=== PATIENT | female | born 1940 | race Caucasian/White ===

== ENCOUNTER 2017-04-10 16:26 | Emergency (ER) | payer MEDICARE, BC ==
[2017-04-10 16:44] VITALS: BP 145/69
--- NOTE | 2017-04-10 16:58 | EDM.PDOC ---
ED HPI GENERAL MEDICAL PROBLEM - General Chief Complaint: Lower Extremity Injury/Pain Stated Complaint: RT FOOT AND ANKLE INJURY Time Seen by Provider: 04/10/17 16:56 Source of Information: Reports: Patient History Limitations: Reports: No Limitations - History of Present Illness INITIAL COMMENTS - FREE TEXT/NARRATIVE: 76-year-old female presents to the ED for evaluation of right ankle and lateral foot pain. She states she was simply stepping out of her vehicle when she inverted her right ankle and foot on late night April 07. Over the next 2 days she's been elevating it and icing it but it's becoming more painful. She has heel walking. His primarily over the lateral aspect of the foot. She localizes pain to the fifth metatarsal head. The ankle itself is also markedly swollen and ecchymotic dorsally and laterally. Onset: Sudden Onset Date: 04/07/17 Onset Time: 19:00 Duration: Day(s):, Getting Worse Location: Reports: Lower Extremity, Right (Right ankle and dorsolateral foot) Quality: Reports: Ache, Throbbing Severity: Moderate Improves with: Reports: Rest Worsens with: Reports: Movement (And weightbearing) Context: Reports: Trauma (Inversion injury to the ankle stepping out of her vehicle) Associated Symptoms: Reports: No Other Symptoms Treatments DIAMOND CLEAVER: Reports: Cold Therapy, NSAIDS, Other (see below) Other Treatments DIAMOND CLEAVER: elevating foot right foot Pain Score (Numeric/FACES): 7 - Related Data Allergies Allergy/AdvReac Type Severity Reaction Status Date / Time codeine Allergy Severe Vomiting Verified 04/10/17 16:44 Home Meds: Home Meds Metoprolol Tartrate 50 mg PO DAILY 04/22/14 [History] Past Medical History HEENT History: Reports: Impaired Vision Cardiovascular History: Reports: Hypertension Musculoskeletal History: Reports: Osteoporosis Endocrine/Metabolic History: Reports: Osteopenia, Osteoporosis Social & Family History - Family History Family Medical History: Noncontributory - Tobacco Use Smoking Status *Q: Never Smoker - Caffeine Use Caffeine Use: Reports: Coffee - Alcohol Use Days Per Week of Alcohol Use: 4 Number of Drinks Per Day: 1 Total Drinks Per Week: 4 - Recreational Drug Use Recreational Drug Use: No - Living Situation & Occupation Living situation: Reports: Occupation: Employed Review of Systems - Review of Systems Review Of Systems: See Below Constitutional: Reports: No Symptoms Eyes: Reports: Other Ears: Reports: No Symptoms Nose: Reports: No Symptoms Mouth/Throat: Reports: No Symptoms Respiratory: Reports: No Symptoms Cardiovascular: Reports: No Symptoms GI/Abdominal: Reports: No Symptoms Genitourinary: Reports: No Symptoms Musculoskeletal: Reports: No Symptoms Skin: Reports: No Symptoms Neurological: Reports: No Symptoms Psychiatric: Reports: No Symptoms ED EXAM, GENERAL - Physical Exam Exam: See Below Exam Limited By: No Limitations General Appearance: Alert, WD/WN, No Apparent Distress Peripheral Pulses: 2+: Posterior Tibial (L), Posterior Tibial (R), Dorsalis Pedis (L), Dorsalis Pedis (R) Extremities: Other (Examination was for the most part limited to her right lower extremity. She has no knee pain or true knee effusion. There is no pain on palpation of the proximal fibula. There is no true pain on palpation of the medial and lateral malleolus. Ankle ligaments themselves appear to be intact and nontender. There is no instability of the ankle ligaments. Point of maximal tenderness is over the fifth metatarsal head and lateral dorsal foot. It is markedly ecchymotic in this area as well. It is moderately swollen.) Neurological: Alert, Oriented, CN II-XII Intact, Normal Cognition, Normal Gait Psychiatric: Normal Affect, Normal Mood Skin Exam: Warm, Dry, Intact EKG INTERPRETATION EKG Date: 04/10/17 Time: 17:30 Rhythm: NSR Rate (Beats/Min): 77 [place]: Normal P-Wave: Present QRS: Normal ST-T: Normal QT: Prolonged (Mildly prolonged) Course - Vital Signs Last Recorded V/S: Last Vital Signs Temp 36.1 C 04/10/17 16:41 Pulse 65 04/10/17 16:41 Resp 18 04/10/17 16:41 BP 145/69 H 04/10/17 16:41 Pulse Ox 98 04/10/17 16:41 - Orders/Labs/Meds Orders: Active Orders 24 hr Category Date Time Status Ankle Min 3V Rt [CR] Stat Exams 04/10/17 16:56 Taken Foot Comp Min 3V Rt [CR] Stat Exams 04/10/17 16:57 Taken - Radiology Interpretation Free Text/Narrative:: [id number] female attends the ED with an inversion injury to her right lateral foot that occurred 3 nights ago while she was stepping out of her vehicle. Pain is actually worsening and concern arose as it is becoming more ecchymotic and swollen over the last 2 days. She's had it up and has been icing it. She is heel walking. She did not fall so well she fell backwards into the car not onto the ground. Examination reveals no ligamentous injury to the true ankle although it is very swollen and ecchymotic on the dorsal anterior ankle and lateral foot. There is obtained of both the ankle and the foot do not reveal any obvious fractures. Of note the bones are very osteoporotic making it difficult to rule out a hairline fracture in the fifth metatarsal head particularly. Patient has been using Juan A wrap at home and will continue to do so. She will elevate and apply heat at this time. Continue NSAIDs as needed. Follow-up x-ray could be repeated in 14 days time if she is still having significant pain in this area although treatment would likely be unchanged. Departure - Departure Time of Disposition: 17:45 Disposition: Home, Self-Care 01 Condition: Fair Clinical Impression: Inversion sprain of right ankle Qualifiers: Encounter type: initial encounter Qualified Code(s): S93.401A - Sprain of unspecified ligament of right ankle, initial encounter Contusion of right foot, initial encounter Qualifiers: Encounter type: initial encounter Qualified Code(s): S90.31XA - Contusion of right foot, initial encounter - Discharge Information Instructions: Foot Contusion, [id number] Referrals: Zora Chandler CONTROL TOWER OPERATOR [Primary Care Provider] - Forms: ED Department Discharge Additional Instructions: Evaluation in the emergency department today in regards to inversion injury to the right ankle at occurred late night April 07. Persistent swelling and pain particularly lateral foot since time of injury. Marked bruising of the anterior lateral foot and ankle appreciated. The ankle ligaments themselves are intact however pain localized more to the head of the fifth metatarsal bone lateral right foot. X-rays of the ankle do not reveal any bony fractures. X- rays of the right foot also do not reveal any obvious fractures. Of note the bones are very osteoporotic or thin and a hairline crack can easily be missed. Treatment is the same with babying the area as much as possible until it heals but it may be very sore over the right lateral foot for the next 6 weeks. Motrin or Aleve for pain relief as needed. - My Orders Last 24 Hours: My Active Orders 04/10/17 16:56 Ankle Min 3V Rt [CR] Stat 04/10/17 16:57 Foot Comp Min 3V Rt [CR] Stat - Assessment/Plan Last 24 Hours: My Active Orders 04/10/17 16:56 Ankle Min 3V Rt [CR] Stat 04/10/17 16:57 Foot Comp Min 3V Rt [CR] Stat
--- NOTE | 2017-04-11 08:14 | CR ---
Right ankle: Four views of the right ankle were obtained. Comparison: No previous right ankle exam. Ankle mortise is symmetric. Bony structures are osteopenic. No fracture, dislocation or other bony abnormality is seen. Small soft tissue calcification is seen off the medial ankle which is incidental. Impression: 1. Osteopenia. Nothing acute is appreciated on right ankle study. Diagnostic code #2
--- NOTE | 2017-04-11 08:14 | CR ---
Right foot: Four views of the right foot were obtained. Comparison: No previous right foot exam. Mild bunion deformity is noted. Bony structures are osteopenic. No calcaneal spurs are seen. Mild soft tissue swelling appears to be present. Slight degenerative change is noted within the DIP joint and PIP joints of the toes. No acute fracture or dislocation is seen. Impression: 1. Incidental findings. Nothing acute is appreciated on right foot study. Diagnostic code #2
== END 2017-04-10 17:55 | disposition home or self-care (01) ==
LOC: JD.ED 16:26
DX: S93.401A Sprain of unspecified ligament of right ankle, initial encounter (principal); S90.31XA Contusion of right foot, initial encounter; I10 Essential (primary) hypertension; Z88.5 Allergy status to narcotic agent; Z79.899 Other long term (current) drug therapy; X50.9XXA Other and unspecified overexertion or strenuous movements or postures, initial encounter
CPT/HCPCS: 73610-26-RT; 73610-RT; 73630-26-RT; 73630-RT; 99282; 99283

== ENCOUNTER 2017-08-26 21:21 | Emergency (ER) | payer MEDICARE, BC ==
[2017-08-26 21:32] VITALS: BP 147/66
[2017-08-26] MEDS ORDERED: HYDROmorphone 1 MG/ML Syringe IVPUSH ONE ×2 (21:41→22:39)
[2017-08-26] MEDS ORDERED: Ketorolac 30 MG/ML SDV IVPUSH ONE (21:41)
--- NOTE | 2017-08-26 21:55 | EDM.PDOC ---
ED HPI GENERAL MEDICAL PROBLEM - General Chief Complaint: Chest Pain Stated Complaint: chest pain Time Seen by Provider: 08/26/17 21:28 Source of Information: Reports: Patient History Limitations: Reports: No Limitations - History of Present Illness INITIAL COMMENTS - FREE TEXT/NARRATIVE: This is a 77-year-old female. About one week ago she awoke about 4 in the morning with severe pain in her left upper back and down her left arm. She thought she might be having some cardiac problems or musculoskeletal problems and this is been waxing and waning. She went to see a chiropractor but that didn 't seem to help. She does notice that if she takes her left arm and put it up over her head and relaxes it and rest it on her head it makes the pain eased up considerably. The pain apparently got worse today so she comes to the ER for evaluation. She's had no shortness of breath no nausea vomiting no diaphoresis. She has no history of neck problems or upper back problems. She is sitting fairly comfortably in the bed in no acute distress at this time when I go to interview her. She says the pain is rather intense and sometimes it's very sharp and it seems to cause tingling in her left thumb and index finger. She denies any recent illnesses no colds no coughs, no nausea or vomiting. Treatments CASINO CASHIER MANAGER: Reports: Other (see below) Other Treatments CASINO CASHIER MANAGER: none Chest Pain Score (Numeric/FACES): 10 - Related Data Allergies Allergy/AdvReac Type Severity Reaction Status Date / Time codeine Allergy Severe Vomiting Verified 04/10/17 16:44 Home Meds: Home Meds Metoprolol Tartrate 50 mg PO DAILY 04/22/14 [History] Aspirin [Halfprin] 81 mg PO DAILY 08/26/17 [History] Ondansetron [Zofran] 4 mg PO Q6H PRN #15 tab 08/26/17 [Rx] traMADol [Ultram] 50 mg PO Q6H PRN #15 tablet 08/26/17 [Rx] Past Medical History HEENT History: Reports: Impaired Vision Cardiovascular History: Reports: Hypertension Musculoskeletal History: Reports: Osteoporosis Endocrine/Metabolic History: Reports: Osteopenia, Osteoporosis Social & Family History - Family History Family Medical History: Noncontributory - Tobacco Use Smoking Status *Q: Never Smoker - Caffeine Use Caffeine Use: Reports: Coffee - Alcohol Use Days Per Week of Alcohol Use: 4 Number of Drinks Per Day: 1 Total Drinks Per Week: 4 - Recreational Drug Use Recreational Drug Use: No - Living Situation & Occupation Living situation: Reports: Occupation: Employed ED ROS GENERAL - Review of Systems Review Of Systems: See Below Constitutional: Denies: Fever, Chills HEENT: Reports: No Symptoms Respiratory: Denies: Shortness of Breath, Cough Cardiovascular: Denies: Chest Pain Endocrine: Reports: No Symptoms GI/Abdominal: Denies: Abdominal Pain, Nausea, Vomiting : Reports: No Symptoms Musculoskeletal: Reports: Arm Pain, Back Pain Skin: Reports: No Symptoms Neurological: Reports: Tingling Psychiatric: Reports: No Symptoms Hematologic/Lymphatic: Reports: No Symptoms ED EXAM, GENERAL - Physical Exam Exam: See Below Exam Limited By: No Limitations General Appearance: Alert, WD/WN, No Apparent Distress Eye Exam: Bilateral Eye: Normal Inspection Ears: Normal External Exam, Normal Canal, Normal TMs Nose: Normal Inspection Throat/Mouth: Normal Inspection, Normal Lips, Normal Oropharynx, Normal Voice, No Airway Compromise Neck: Supple, Other (She is noted to have tenderness at the base of the neck on the left hand side and palpation in that area causes the tingling in her left thumb and index finger suggesting a C6 dermatone) Respiratory/Chest: No Respiratory Distress, Lungs Clear Cardiovascular: Regular Rate, Rhythm, No Murmur GI/Abdominal: Soft Back Exam: Other (Her upper back trapezius muscle and rhomboid muscles are very tender on palpation the scapula is not in the thoracic spine is nontender on palpation, again I can reproduce some of this sharp pain and the tingling in her fingers by palpation of the left base of the neck) Extremities: Normal Inspection, Normal Range of Motion, No Pedal Edema Neurological: Alert, Oriented, Other (Patient states she feels weak in that left arm when she has the pain but denies any decreased range of motion or function) Psychiatric: Normal Affect, Normal Mood Skin Exam: Warm, Dry EKG INTERPRETATION EKG Date: 08/26/17 Time: 21:28 EKG Interpretation Comments: EKG shows a normal sinus rhythm, there does not appear to be any acute ST or T- wave changes no acute ischemia noted Course - Vital Signs Last Recorded V/S: Last Vital Signs Temp 97.6 F 08/26/17 21:30 Pulse 88 08/26/17 21:30 Resp 14 08/26/17 21:30 BP 147/66 H 08/26/17 21:30 Pulse Ox 99 08/26/17 21:30 - Orders/Labs/Meds Orders: Active Orders 24 hr Category Date Time Status EKG Documentation Completion [RC] ASDIRECTED Care 08/26/17 22:31 Active CXR [Chest 1V Frontal] [CR] Stat Exams 08/26/17 21:43 Ordered HYDROmorphone [Dilaudid] Med 08/26/17 22:39 Once 1 mg IVPUSH ONETIME ONE Ondansetron [Zofran] Med 08/26/17 22:39 Once 4 mg IVPUSH ONETIME ONE EKG 12 Lead [EK] Stat Ther 08/26/17 21:30 Ordered Labs: Laboratory Tests 08/26/17 08/26/17 Range/Units 21:31 21:31 WBC 9.71 (3.98-10.04) K/mm3 RBC 3.72 L (3.98-5.22) M/mm3 Hgb 10.3 L (11.2-15.7) gm/L Hct 32.2 L (34.1-44.9) % MCV 86.6 (79.4-94.8) fl MCH 27.7 (25.6-32.2) pg MCHC 32.0 L (32.2-35.5) g/dl RDW Std Deviation 45.4 (36.4-46.3) fL Plt Count 307 (182-369) K/mm3 MPV 10.7 (9.4-12.3) fl Neut % (Auto) 42.3 (34.0-71.1) % Lymph % (Auto) 45.4 (19.3-51.7) % [place] % (Auto) 9.5 (4.7-12.5) % Eos % (Auto) 2.1 (0.7-5.8) Baso % (Auto) 0.6 (0.1-1.2) % Neut # (Auto) 4.11 (1.56-6.13) K/mm3 Lymph # (Auto) 4.41 H (1.18-3.74) K/mm3 [place] # (Auto) 0.92 H (0.24-0.36) K/mm3 Eos # (Auto) 0.20 (0.04-0.36) K/mm3 Baso # (Auto) 0.06 (0.01-0.08) K/mm3 Sodium 141 (136-145) mEq/L Potassium 4.4 (3.5-5.1) mEq/L Chloride 106 (98-107) mEq/L Carbon Dioxide 24 (21-32) mEq/L Anion Gap 15.4 H (5-15) BUN 19 H (7-18) mg/dL Creatinine 1.1 H (0.55-1.02) mg/dL Est Cr Clr Drug Dosing 41.37 mL/min Estimated GFR (MDRD) 48 (>60) mL/min BUN/Creatinine Ratio 17.3 (14-18) Glucose 115 (83-115) mg/dL Calcium 9.6 (8.5-10.1) mg/dL Total Bilirubin 0.2 (0.2-1.0) mg/dL AST 25 (15-37) U/L ALT 26 (14-59) U/L Alkaline Phosphatase 75 (46-116) U/L Troponin I < 0.017 (0.00-0.056) ng/mL Total Protein 7.3 (6.4-8.2) g/dl Albumin 3.9 (3.4-5.0) g/dl Globulin 3.4 gm/dL Albumin/Globulin Ratio 1.2 (1-2) Meds: Medications Discontinued Medications Generic Name Dose Route Start Last Admin Trade Name Freq PRN Reason Stop Dose Admin Hydromorphone HCl 0.5 mg 08/26/17 21:41 08/26/17 21:48 Dilaudid IVPUSH 08/26/17 21:42 0.5 mg ONETIME ONE Administration Ketorolac Tromethamine 30 mg 08/26/17 21:41 08/26/17 21:48 Toradol IVPUSH 08/26/17 21:42 30 mg ONETIME ONE Administration - Re-Assessments/Exams Free Text/Narrative Re-Assessment/Exam: 08/26/17 22:40 I spoke to the patient regarding her lab results troponin level and chest x- ray. They're all appear to be normal. She does have a history of cervical fusion in the past and I'm concerned that she has a bulging or possibly herniated disc with her symptoms. She knows to follow up with her male infertility specialist Dr. Avila on Tuesday for recheck. Departure - Departure Time of Disposition: 22:41 Disposition: Home, Self-Care 01 Condition: Fair Clinical Impression: Cervical radiculopathy at C6, Left cervical radiculopathy Prescriptions: Ondansetron [Zofran] 4 mg PO Q6H PRN #15 tab PRN Reason: Nausea traMADol [Ultram] 50 mg PO Q6H PRN #15 tablet PRN Reason: Pain Referrals: Zora Chandler NP [Primary Care Provider] - Tacho Avila MD [Physician] - Forms: ED Department Discharge Additional Instructions: When you get home and put ice on your left neck and shoulder area to help with the pain, as much as possible rest on your left arm on your head to help ease the pain, take the Zofran for the nausea before you take your pain medicine, limit your activity over the weekend and limit whatever you do with her left arm with no lifting no pulling no pushing nothing to aggravate your pain, follow -up with Dr. Avila on Tuesday by calling his office at 8 AM in the morning because you need to be rechecked and possible MRI of your cervical spine, return to the ER if needed - My Orders Last 24 Hours: My Active Orders 08/26/17 21:30 EKG 12 Lead [EK] Stat 08/26/17 21:43 CXR [Chest 1V Frontal] [CR] Stat 08/26/17 22:31 EKG Documentation Completion [RC] ASDIRECTED 08/26/17 22:39 HYDROmorphone [Dilaudid] 1 mg IVPUSH ONETIME ONE Ondansetron [Zofran] 4 mg IVPUSH ONETIME ONE - Assessment/Plan Last 24 Hours: My Active Orders 08/26/17 21:30 EKG 12 Lead [EK] Stat 08/26/17 21:43 CXR [Chest 1V Frontal] [CR] Stat 08/26/17 22:31 EKG Documentation Completion [RC] ASDIRECTED 08/26/17 22:39 HYDROmorphone [Dilaudid] 1 mg IVPUSH ONETIME ONE Ondansetron [Zofran] 4 mg IVPUSH ONETIME ONE
[2017-08-26] MEDS ORDERED: Ondansetron 4 MG/2 ML SDV IVPUSH ONE (22:39)
--- NOTE | 2017-08-29 08:33 | CR ---
Chest: Portable view of the chest was obtained. Comparison: No prior chest x-ray. Heart size and mediastinum are within normal limits for portable technique. Lungs are clear. Surgical clips are noted at the gastroesophageal junction. Previous lower cervical spine surgery is noted. Impression: 1. Incidental findings. Nothing acute is identified on portable chest x-ray. Diagnostic code #2
== END 2017-08-26 23:05 | disposition home or self-care (01) ==
LOC: JD.ED 21:21
DX: M54.12 Radiculopathy, cervical region (principal); I10 Essential (primary) hypertension; Z88.5 Allergy status to narcotic agent; Z79.82 Long term (current) use of aspirin; Z79.899 Other long term (current) drug therapy
CPT/HCPCS: 36415; 71010; 80053; 84484; 85025; 93005; 96374; 96375; 96376; 99284; J1170; J1885; J2405; 93010

== ENCOUNTER 2020-08-20 04:09 | Emergency (ER) | payer MEDICARE, BC ==
--- NOTE | 2020-08-20 05:23 | EDM.PDOC ---
ED HPI GENERAL MEDICAL PROBLEM - General Chief Complaint: Respiratory Problem Stated Complaint: COVID+ POSS PNEUMONIA Time Seen by Provider: 08/20/20 04:58 Source of Information: Reports: Patient History Limitations: Reports: No Limitations - History of Present Illness INITIAL COMMENTS - FREE TEXT/NARRATIVE: Mrs. Sears is a very pleasant 80-year-old woman who now presents to the ED with a nonproductive cough, dyspnea, and rib pain related to her cough that all began on 08/11/2020. She was swabbed for the SARS-CoV-2 virus on , 08/14/2020, receiving a positive result the following day, 08/15/2020. Since then, she has been taking Tylenol every 4 hours, however, her symptoms have persisted. Here in the ED, the patient is found to be hemodynamically stable, afebrile, saturating 94% on room air. Prior to 08/11/2020, the patient denies having a recent fever, chills, sore throat, ear pain, nasal or sinus congestion, cough, dyspnea, chest pain, pal pitations, nausea, vomiting, constipation, diarrhea, abdominal pain, urinary symptoms, recent weight gain or weight loss, recent bloody bowel movements or black bowel movements, recent joint aches, headaches, or rashes. The patient's PCP is Zora Chandler NP. Her cardiology midlevel is TIFF Gonzales. She already received an influenza vaccine this season. ribs Pain Score (Numeric/FACES): 6 - Related Data Allergies Allergy/AdvReac Type Severity Reaction Status Date / Time codeine AdvReac Intermediate Vomiting Verified 08/20/20 04:38 Home Meds: Home Meds Aspirin [Halfprin] 81 mg PO DAILY 08/26/17 [History] Calcium Carbonate [Calcium] 1,200 mg PO DAILY 04/02/19 [History] Lisinopril 10 mg PO DAILY 04/02/19 [History] Lutein/Minerals/Vit A,C & E [Ocuvite] 1 tab PO DAILY 04/02/19 [History] Metoprolol Succinate 50 mg PO DAILY 04/02/19 [History] Multivitamin [Daily Multiple Vitamin] 1 tab PO DAILY 04/02/19 [History] Olopatadine [Patanol 0.1% Ophth Soln] 1 drop EYEBOTH DAILY 04/02/19 [History] Past Medical History HEENT History: Reports: Allergic Rhinitis Cardiovascular History: Reports: Hypertension Gastrointestinal History: Reports: PUD (duodenal ulcer, s/p duodenectomy) Musculoskeletal History: Reports: Osteoporosis (untreated) - Infectious Disease History Infectious Disease History: Reports: Novel Coronavirus (dx'd 08/14/2020) - Past Surgical History HEENT Surgical History: Reports: Cataract Surgery (bilateral), Oral Surgery (dental extractions), Tonsillectomy GI Surgical History: Reports: Appendectomy, Other (See Below) (Duodenectomy) Female Surgical History: Reports: Hysterectomy (partial), Oophorectomy Endocrine Surgical History: Reports: Other (See Below) (Thyroid cystectomy) Neurological Surgical History: Reports: C-Spine (laminectomy) Social & Family History - Tobacco Use Tobacco Use Status *Q: Never Tobacco User - Caffeine Use Caffeine Use: Reports: Coffee - Alcohol Use Alcohol Use History: Yes Alcohol Use Frequency: Socially - Recreational Drug Use Recreational Drug Use: No - Living Situation & Occupation Living situation: Reports: , with Spouse 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 ED EXAM, GENERAL - Physical Exam Exam: See Below Exam Limited By: No Limitations General Appearance: Alert, WD/WN, No Apparent Distress Eye Exam: Bilateral Eye: EOMI, Normal Inspection Ears: Normal External Exam, Hearing Grossly Normal Nose: Normal Inspection Throat/Mouth: Normal Inspection, Normal Lips, Normal Voice, No Airway Compromise Head: Atraumatic, Normocephalic Neck: Normal Inspection, Full Range of Motion Respiratory/Chest: No Respiratory Distress, Lungs Clear, Normal Breath Sounds, N o Accessory Muscle Use, Other (Taking deep breaths induced coughing, which the patient stated was painful) Cardiovascular: Normal Peripheral Pulses, Regular Rate, Rhythm, No Edema, No Gallop, No JVD, No Murmur, No Rub Peripheral Pulses: 3+: Radial (L), Radial (R) GI/Abdominal: Normal Bowel Sounds, Soft, Non-Tender, No Organomegaly, No Distention, No Abnormal Bruit, No Mass Back Exam: Normal Inspection, Full Range of Motion, NT Extremities: Normal Inspection, Normal Range of Motion, No Pedal Edema, Normal Capillary Refill Neurological: Alert, Oriented, Normal Cognition, No Motor/Sensory Deficits Psychiatric: Normal Affect Skin Exam: Warm, Dry, Intact, Normal Color, No Rash Course - Vital Signs Last Recorded V/S: Last Vital Signs Temp 36.2 C 08/20/20 06:10 Pulse 61 08/20/20 07:45 Resp 18 08/20/20 07:45 BP 127/62 08/20/20 07:45 Pulse Ox 95 08/20/20 07:45 - Orders/Labs/Meds Meds: Medications Discontinued Medications Generic Name Dose Route Start Last Admin Trade Name Freq PRN Reason Stop Dose Admin Diphenhydramine HCl 50 mg 08/20/20 05:24 Benadryl IVPUSH ONETIME PRN hypersensitivity reaction Epinephrine HCl 0.3 mg 08/20/20 05:24 Epinephrine 1:10,000 IM ONETIME PRN hypersensitivity reaction Famotidine 20 mg 08/20/20 05:24 Pepcid IVPUSH ONETIME PRN hypersensitivity reaction Bamlanivimab 700 mg/ Sodium 200 mls @ 200 mls/hr 08/20/20 05:24 08/20/20 05:58 Chloride IV 08/20/20 05:25 250 mls/hr ONETIME STA Administration Protocol Methylprednisolone Sodium Succinate 125 mg 08/20/20 05:24 Solu-Medrol IVPUSH ONETIME PRN hypersensitivity reaction Sodium Chloride 30 ml 08/20/20 05:30 Saline Flush FLUSH ASDIRECTED OMID - Re-Assessments/Exams Free Text/Narrative Re-Assessment/Exam: 08/20/20 05:14 As above, the patient developed symptoms of a nonproductive cough with pleuritic chest pain on 08/11/2020, was swabbed for the SARS-CoV-2 virus on , 08/14/2020, with a positive result the following day, 08/15/2020. Her symptoms have persisted, and she is concerned that she has pneumonia, although she has not had a fever. Her physical exam is grossly rachel gn, although deep breaths induces a cough. Since she is not hypoxemic, she is not a candidate for dexamethasone, remdesivir, or adolescent plasma, therefore blood work is not useful unless a chest x-ray demonstrates an infiltrate. 08/20/20 05:23 Due to the patient being over 65 years of age, she is a candidate for bamlanivimab. I discussed this option with the patient at length. I explained that bamlanivimab has been approved for emergency use authorization by the FDA, but that it has not been fully reviewed and approved. I explained the potential risks of therapy including anaphylaxis, as well as infusion-related reactions that could include fever, chills, nausea, headache, bronchospasm, hypotension, angioedema, throat irritation, hives, an itchy rash, muscle aches, or dizziness. 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 I explained that bamlanivimab is an infusion that will likely take about an hour, after which she will be required to stay for an additional hour to make sure that she does not suffer any adverse effects. I asked the patient if she had any questions, and she did not. She would still like to proceed with receiving it. She will be offered a fact sheet regarding bamlanivimab to review prior to receiving the infusion. 08/20/20 07:03 Two-view chest radiograph reviewed. The cardiac silhouette is within normal limits. No pulmonary vascular congestion. No pleural effusions. No focal infiltrate, although there are some increased lung markings consistent with pulmonary fibrosis. No pneumothorax. Formal read per the Radiologist pending. 08/20/20 07:06 The infusion of bamlanivimab finished at 07:00, without incident. The patient will be discharged home at 08:00. Departure - Departure Time of Disposition: 08:00 Disposition: Home, Self-Care 01 Condition: Good Clinical Impression: COVID-19 - Discharge Information *PRESCRIPTION DRUG MONITORING PROGRAM REVIEWED*: Not Applicable *COPY OF PRESCRIPTION DRUG MONITORING REPORT IN PATIENT OPAL: Not Applicable Instructions: COVID-19 Referrals: Zora Chandler NP [Primary Care Provider] - Cynthia Kidd PA-C [Ordering Only Provider] - Forms: ED Department Discharge Additional Instructions: You were seen in the emergency room for a persistent painful dry cough since 08/11/2020, in the setting of a diagnosis of COVID-19 on 08/14/2020. Work-up in the ER included a chest x-ray, which did not show any infiltrates concerning for pneumonia. You were treated with the emergency use authorization [id number] medicine bamlanivimab, which will hopefully prevent you from getting significantly ill from COVID-19. You may take [id number] Tylenol or ibuprofen as needed for discomfort. If any other problems, please do not hesitate to return to the ER. Sepsis Event Note (ED) - Evaluation Sepsis Screening Result: No Definite Risk
[2020-08-20] MEDS ORDERED: methylPREDNISolone Sodium Succinate 125 MG/2 ML SDV IVPUSH PRN (05:24)
[2020-08-20] MEDS ORDERED: Famotidine 20 MG/2 ML SDV IVPUSH PRN (05:24)
[2020-08-20] MEDS ORDERED: diphenhydrAMINE 50 MG/ML SDV IVPUSH PRN (05:24)
[2020-08-20] MEDS ORDERED: EPINEPHrine 1:10,000 1 MG/10 ML Syringe IM PRN (05:24)
[2020-08-20] MEDS ORDERED: Sodium Chloride 0.9% 10 ML Syringe FLUSH SCH (05:30)
[2020-08-20 07:48] VITALS: BP 127/62; PULSE 61
--- NOTE | 2020-08-20 08:29 | CR ---
Chest: 2 views of the chest were obtained. Comparison: Prior chest x-ray of 10/02/19. Findings: Heart and mediastinum: Within normal limits for technique. No mediastinal mass is seen. Lungs: Very slight atelectasis is seen within the right middle lobe. No acute parenchymal change is definitely appreciated. No pleural effusions are seen. Osseous: Prior cervical spine surgery is noted. Scoliosis is noted within the spine with scattered degenerative change. Upper abdominal structures: Surgical clips seen at the gastroesophageal junction. Impression: 1. Atelectasis within the right middle lobe. 2. Other findings as noted above. Diagnostic code #2
== END 2020-08-20 08:10 | disposition home or self-care (01) ==
LOC: JD.ED 04:09
DX: U07.1 COVID-19 (principal); I10 Essential (primary) hypertension; Z86.19 Personal history of other infectious and parasitic diseases; Z88.5 Allergy status to narcotic agent; Z79.899 Other long term (current) drug therapy; Z79.82 Long term (current) use of aspirin
CPT/HCPCS: 71046; 96365; 99284; J7050; 99283

== ENCOUNTER 2022-01-07 07:49 | Day surgery (SDC) | payer MEDICARE, BC ==
[~2022-01-07 07:49] MED LIST: Lactated Ringers 1,000 ML IV SCH; Lidocaine 1%/Sod Bicarbonate in NS 8.4% 1 ML Syringe IDERM PRN; Sodium Chloride 0.9% 10 ML Syringe FLUSH PRN; Sodium Chloride 0.9% 10 ML Syringe FLUSH SCH
[2022-01-07] MEDS ORDERED: Lidocaine 1% 2 ML ONE (08:31)
[2022-01-07] MEDS ORDERED: Propofol 200 MG/20 ML SDV ONE (08:31)
[2022-01-07 10:13] VITALS: BP 136/54; PULSE 78
== END 2022-01-07 09:50 | disposition home or self-care (01) ==
LOC: JD.SDS 07:49
PROVIDERS: ATTEND Surgery
DX: K29.50 Unspecified chronic gastritis without bleeding (principal); K31.89 Other diseases of stomach and duodenum; K20.0 Eosinophilic esophagitis; K21.9 Gastro-esophageal reflux disease without esophagitis; I48.91 Unspecified atrial fibrillation; I10 Essential (primary) hypertension; H54.7 Unspecified visual loss; I25.10 Atherosclerotic heart disease of native coronary artery without angina pectoris; Z88.5 Allergy status to narcotic agent; Z88.1 Allergy status to other antibiotic agents; Z87.19 Personal history of other diseases of the digestive system; Z90.3 Acquired absence of stomach [part of]; Z90.49 Acquired absence of other specified parts of digestive tract; Z90.89 Acquired absence of other organs; Z79.899 Other long term (current) drug therapy
CPT/HCPCS: 43239; J2704; J7120; 00731; 99100

== ENCOUNTER 2023-08-25 08:41 | Day surgery (SDC) | payer MEDICARE, BC ==
[~2023-08-25 08:41] MED LIST changes: -Lidocaine 1%/Sod Bicarbonate in NS 8.4% 1 ML Syringe IDERM PRN
[2023-08-25] MEDS ORDERED: Propofol 200 MG/20 ML SDV ONE ×3 (10:10→10:46)
[2023-08-25] MEDS ORDERED: Lidocaine 1% 4 ML ONE (10:20)
[2023-08-25] MEDS ORDERED: ePHEDrine 50 MG/ML SDV ONE (11:01)
[2023-08-25 12:38] VITALS: BP 113/51; PULSE 69
== END 2023-08-25 11:41 | disposition home or self-care (01) ==
LOC: JD.SDS 08:41
PROVIDERS: ATTEND Surgery
DX: D12.5 Benign neoplasm of sigmoid colon (principal); D12.8 Benign neoplasm of rectum; K29.70 Gastritis, unspecified, without bleeding; K31.89 Other diseases of stomach and duodenum; K57.30 Diverticulosis of large intestine without perforation or abscess without bleeding; K21.9 Gastro-esophageal reflux disease without esophagitis; I10 Essential (primary) hypertension; I25.10 Atherosclerotic heart disease of native coronary artery without angina pectoris; E89.0 Postprocedural hypothyroidism; Z86.16 Personal history of COVID-19; Z79.899 Other long term (current) drug therapy; Z88.5 Allergy status to narcotic agent
CPT/HCPCS: 43239; 45380; 93005; J2704; J7120; J3490

== ENCOUNTER 2025-01-08 08:41 | Day surgery (SDC) | payer MEDICARE, BC ==
[~2025-01-08 08:41] MED LIST changes: -Lactated Ringers 1,000 ML IV SCH
[2025-01-08] MEDS ORDERED: Lidocaine 1% 4 ML ONE (08:51)
[2025-01-08] MEDS ORDERED: Propofol 200 MG/20 ML SDV ONE ×2 (08:51→10:10)
[2025-01-08] MEDS: Lactated Ringers 1,000 ML IV SCH (09:10)
[2025-01-08 12:39] VITALS: BP 120/66; PULSE 62
== END 2025-01-08 11:00 | disposition home or self-care (01) ==
LOC: JD.SDS 08:41
PROVIDERS: ATTEND Surgery
DX: K21.00 Gastro-esophageal reflux disease with esophagitis, without bleeding (principal); E11.9 Type 2 diabetes mellitus without complications; I10 Essential (primary) hypertension; Z79.82 Long term (current) use of aspirin; Z79.899 Other long term (current) drug therapy; Z88.8 Allergy status to other drugs, medicaments and biological substances; Z88.5 Allergy status to narcotic agent; Z91.011 Allergy to milk products
CPT/HCPCS: 43239; J2003; J2704; J7120; 00731; 99100